=== PATIENT | male | born 1990 | race Hispanic/Latino ===

== ENCOUNTER 2025-01-31 09:12 | Emergency (ER) | payer SELFPAY ==
--- NOTE | ~2025-01-31 | CT_ITS ---
EXAMINATION: CT abdomen pelvis wo con DATE: 01/31/2025 09:51 INDICATION: Flank pain. Renal stent. TECHNIQUE: Computed tomography (CT) of the abdomen and pelvis was performed without intravenous contrast. The dose-length product was 213.12 mGy-cm. Automated exposure control and iterative reconstruction technique were employed. COMPARISON: None. FINDINGS: Lung bases are unremarkable. Heart size normal. No significant pleural or pericardial effusion. There is a right internal ureteral stent in expected position. There is a 3 mm right ureteral stone, image 85. No bladder stones. There is nonobstructing 2 mm right renal stone. No left renal stones or hydronephrosis. The liver, spleen, pancreas, adrenal glands are unremarkable. Gallbladder is present. Nonobstructive bowel gas pattern. Normal appendix. No free air or free fluid. Mild chronic wedge shaped deformity of L1. No acute bone or joint abnormality. IMPRESSION: 1. Proximal right ureteral stone measuring 3 mm. Right internal ureteral stent in expected position. 2: Nonobstructing 2 mm right renal stone. Reviewed, dictated and finalized at location O.
[2025-01-31 09:20] VITALS: BP 116/68; PULSE 80; RESP 16; TEMP 36.4; O2SAT 100
[2025-01-31 09:35] LABS: Hematocrit 36.5 % (42.0-52.0); Hemoglobin 12.1 g/dL (14.0-18.0); Immature Granulocyte Percent A 0.2 % (0-0.5); Lymphocytes Absolute Auto 1.81 K/mm3 (0.9-3.2); Mean Corpuscular HGB Conc 33.2 g/dl (32-36); Mean Corpuscular Hemoglobin 29.2 pg (26-34); Mean Corpuscular Volume 88.2 fl (80-100); Nucleated Red Blood Cells Absolute Auto 0.000 K/mm3 (0.0-0.012); Nucleated Red Blood Cells Perc 0.0 % (0.0-0.2); Platelet Count Result 200 k/mm3 (150-375); Red Blood Count 4.14 M/mm3 (4.6-6.20); White Blood Count 4.5 K/mm3 (4.5-10.0)
--- NOTE | 2025-01-31 09:37 | ED.BACK ---
HPI - Back Pain/Injury General Chief Complaint: Back Pain/Injury Stated Complaint: R FLANK PAIN STENT PLACED Time Seen by Provider: 01/31/25 09:37 Source: patient Mode of arrival: ambulatory Limitations: no limitations History of Present Illness HPI Narrative: 34 years old male came to the ED by private car with right flank pain. History of right kidney stone, stent placement 1 month ago in [place]. Pain radiating to right lower quadrant and the tip of his penis. Frequent urination, bloody urine. No aggravating or relieving factors. Patient denies any fever, chills, nausea, vomiting. Related Data Allergies Allergy/AdvReac Type Severity Reaction Status Date / Time No Known Allergies Allergy Verified 01/31/25 09:23 Review of Systems Review of Systems: All systems reviewed & are unremarkable except as noted in HPI and below Exam Narrative: General appearance: Well-developed, well-nourished Skin: Normal color Head: Normocephalic, nontraumatic Eyes: Clear conjunctiva ENT: Oropharynx normal, ears normal, nose normal Neck: Supple, nontender Chest and respiratory: Airway patent, no respiratory distress, no accessory muscle use Heart: Regular rate/rhythm Abdomen: Right flank and right lower quadrant tenderness Vascular: Normal peripheral pulses, normal capillary refill. Musculoskeletal: Normal range of motion, nontender back Neurologic: Alert and oriented ?3, [employer] is normal as tested, no gross motor deficit Course Consultations Consultation #1: DR KEANE OUTPATIENT FOLLOW-UP Date: 01/31/25 Vital Signs Vital signs: Vital Signs Temperature 36.4 C L 01/31/25 09:20 Pulse Rate 80 01/31/25 09:20 Respiratory Rate 16 01/31/25 09:20 Blood Pressure 116/68 01/31/25 09:20 Pulse Oximetry 100 01/31/25 09:20 Oxygen Delivery Room Air 01/31/25 09:20 Temperature 36.4 C L 01/31/25 09:20 Pulse Rate 54 L 01/31/25 11:01 Respiratory Rate 18 01/31/25 11:01 Blood Pressure 114/78 01/31/25 11:01 Pulse Oximetry 100 01/31/25 11:01 Oxygen Delivery Room Air 01/31/25 09:20 MDM - Back Pain/Injury MDM Narrative Medical decision making narrative: Patient presents with right flank pain, status post right kidney stent placement 1 month ago Vital signs are stable Physical examination showing tenderness right flank and right lower quadrant Differential diagnosis include pyelonephritis, kidney stone. Blood workup today includes CBC, CMP showed insignificant abnormality Urinalysis showed urinary tract infection CT abdomen and pelvis without contrast showed proximal right ureteral stone measuring 3 mm. Right internal urethral stent in expected position Differential Diagnosis Differential diagnosis: Likely other (As above) Medical Records Attestation: I reviewed the patient's medical records. Lab Data Attestation: I reviewed the patient's lab results. 01/31/25 09:30 01/31/25 09:30 Labs: Lab Results 01/31/25 Range/Units 09:30 WBC 4.5 (4.5-10.0) K/mm3 RBC 4.14 L (4.6-6.20) M/mm3 Hgb 12.1 L (14.0-18.0) g/dL Hct 36.5 L (42.0-52.0) % MCV 88.2 (80-100) fl MCH 29.2 (26-34) pg MCHC 33.2 (32-36) g/dl RDW 12.4 (11.5-14.5) % Plt Count 200 (150-375) k/mm3 MPV 8.8 (7.4-10.4) fl Immature Gran % (Auto) 0.2 (0-0.5) % Neut % (Auto) 44.8 L (45.5-73.1) % Lymph % (Auto) 40.1 (18.3-44.2) % [place] % (Auto) 9.5 H (2.6-8.5) % Eos % (Auto) 4.7 H (0-4.4) % Baso % (Auto) 0.7 (0.2-1.2) % Lymph # (Auto) 1.81 (0.9-3.2) K/mm3 [place] # (Auto) 0.4 (0.1-0.6) K/mm3 Eos # (Auto) 0.2 (0-0.3) K/mm3 Baso # (Auto) 0.0 (0.0-0.1) K/mm3 Abs Immat Gran (auto) 0.01 (0.00-0.031) K/mm3 Absolute Neuts (auto) 2.0 (1.3-6.7) K/mm3 Absolute Nucleated RBC 0.000 (0.0-0.012) K/mm3 Nucleated RBC % 0.0 (0.0-0.2) % Sodium 135 L (137-145) mmol/L Potassium 3.8 (3.4-5.0) mmol/L Chloride 104 (98-107) mmol/L Carbon Dioxide 23 (22-30) mmol/L Anion Gap 8 (4-12) mmol/L BUN 16 (9-20) mg/dL Creatinine 0.77 (0.7-1.3) mg/dL Estim Creat Clear Calc 105 ml/min Estimated GFR > 60 (59 - ) Glucose 95 (65-110) mg/dL Calcium 8.9 (8.4-10.2) mg/dL Total Bilirubin 0.5 (0.2-1.3) mg/dL AST 25 (17-59) U/L ALT 30 (6-50) U/L Alkaline Phosphatase 52 (38-126) U/L Total Protein 7.9 (6.3-8.2) g/dL Albumin 4.3 (3.5-5.1) g/dL Lipase 126 (23-300) U/L Urine Color Yellow (Yellow) Urine Appearance Cloudy H (Clear) Urine pH 6.0 (5.0-9.0) Ur Specific [place] 1.019 (1.001-1.035) Urine Protein 1+ H (Negative) mg/dL Urine Glucose (UA) Negative (Negative) mg/dL Urine Ketones Negative (Negative) mg/dL Ur Blood (Man) 3+ H (Negative) Urine Nitrate Negative (Negative) Urine Bilirubin Negative (Negative) Urine Urobilinogen 0.2 (<2.0) mg/dL Leukocyte Esterase Rfl 1+ H (Negative) DAVID/UL Urine RBC >100 H (0-2) /hpf Urine WBC 6-10 H (0-3) /hpf Ur Squamous Epith Cells None seen (Few) /hpf Urine Bacteria None seen /hpf Urine Casts 0-2 Imaging Data Radiologist's impression: Impressions Abdomen/Pelvis CT 01/31/25 10:02 IMPRESSION: 1. Proximal right ureteral stone measuring 3 mm. Right internal ureteral stent in expected position. 2: Nonobstructing 2 mm right renal stone. Critical Care Time Critical Care Time Critical Care Time: No Discharge Plan Discharge Clinical Impression: Urinary tract infection, History of renal stent, Kidney stone Patient Disposition: Home Condition: Stable Instructions: Antibiotic Form, Kidney Stones (ED), Urinary Tract Infection in Men (ED) Additional Instructions: Return if symptoms are worsening , call dr garcia , take ibuprofen , Tylenol as as needed for aches and pain, continue home medications. Patient Language: Tristanian Prescriptions: New ciprofloxacin HCl [Cipro] 500 mg tablet 500 mg PO Q12H Qty: 20 0RF Follow-up/Referrals: rad[facility] [Other] - 02/04/25 Rickie Keane MD [Physician, Urology] - 02/03/25 UNKNOWN,DOCTOR [Non-Staff]
[2025-01-31 09:41] LABS: Add Urine Microscopic? YES; Appearance Urine Cloudy (Clear); Glucose Urine UA Negative (Negative); Leukocyte Esterase Ur 1+ LEU/UL (Negative); Nitrate Urine Negative (Negative); Non Pathogenic Casts 0-2; Specific Grav Ur 1.019 (1.001-1.035)
[2025-01-31] MEDS: HYDROmorphone HCL INJ (*CRX) 1 MG/ML SYR 0.5 MG IV PUSH (09:54)
[2025-01-31] MEDS: SODIUM CHLORIDE 0.9% IV 1,000 ML 999 ML IV CONT (09:54)
[2025-01-31] MEDS: ONDANSETRON INJ 4 MG/2 ML VIAL IV PUSH (09:54)
[2025-01-31 09:55] LABS: Alanine Aminotransferase 30 U/L (6-50); Albumin Level 4.3 g/dL (3.5-5.1); Alkaline Phosphatase 52 U/L (38-126); Anion Gap 8 mmol/L (4-12); Aspartate Amino Transferase 25 U/L (17-59); Bilirubin,Total 0.5 mg/dL (0.2-1.3); Blood Urea Nitrogen 16 mg/dL (9-20); Calcium 8.9 mg/dL (8.4-10.2); Carbon Dioxide 23 mmol/L (22-30); Chloride 104 mmol/L (98-107); Estimated CRCL calculation 105 ml/min; Estimated Glomerular Filt Rate > 60; Glucose 95 mg/dL (65-110); Potassium 3.8 mmol/L (3.4-5.0); Sodium 135 mmol/L (137-145); Total Protein 7.9 g/dL (6.3-8.2)
[2025-01-31 10:01] LABS: Lipase 126 U/L (23-300)
[2025-01-31 10:33] VITALS: BP 112/81; PULSE 60; RESP 16; O2SAT 100
[2025-01-31 11:01] VITALS: BP 114/78; PULSE 54; RESP 18; O2SAT 100
== END 2025-01-31 11:42 | disposition home or self-care (01) ==
PROVIDERS: Emergency Provider Emergency Medicine
DX: N39.0 Urinary tract infection, site not specified (principal); N20.2 Calculus of kidney with calculus of ureter; Z96.0 Presence of urogenital implants
CPT/HCPCS: 36415; 74176; 80053; 81001; 83690; 85025; 87086; 96361; 96374; 96375; 99284; J1171; J2405; J7030